=== PATIENT | male | born 1945 | race Caucasian/White ===

== ENCOUNTER 2017-05-01 13:14 | Emergency (ER) | payer OTHER, MEDICARE ==
[~2017-05-01] VITALS: Ht 172.7 cm; Wt 93.9 kg
[2017-05-01 13:18] VITALS: BP 163/79
--- NOTE | 2017-05-01 16:10 | ED MVC/FALL/TRAUMA COMPLAINT ---
History of Present Illness General Chief Complaint: Laceration Procedure Stated Complaint: LAC TO HEAD, S/P HITTING HEAD OB WOODEN BEAM Source: patient, family Exam Limitations: no limitations Vital Signs & Intake/Output Vital Signs & Intake/Output Vital Signs Date Time Temp Pulse Resp B/P B/P Pulse O2 O2 Flow FiO2 Mean Ox Delivery Rate 05/01 1626 Room Air 05/01 1318 97.1 80 15 163/79 97 Room Air Room Air Allergies Coded Allergies: hydrocodone (From VICODIN) (Severe, "VASOVAGAL" 05/01/17) Reconcile Medications Cetirizine HCl (All Day Allergy) 10 MG TABLET 1 TAB PO DAILY ALLERGIES ( Reported) Pravastatin Sodium 20 MG TABLET 1 TAB PO DAILY CHOLESTEROL (Reported) Tamsulosin HCl 0.4 MG CAP.ER.24H 1 CAP PO DAILY PROSTATE (Reported) Triage Note: PT TO ED FOR LAC TO L FRONT PART OF HEAD S/P WALKING INTO WOOD BEAM. PT DENIES HEADACHE, CHANGE IN VISION, NAUESA. NO THINNERS. LAST TETNUS FOUR YEARS AGO. Triage Nurses Notes Reviewed? yes HPI: 71 yo M PMH HLD, BPH presenting with scalp laceration. Patient was working this morning underneath his porch approximately 5 hours ago, while exiting the area underneath the porch and struck his left frontal/parietal head on a wooden beam, sustained laceration to left lateral frontal head. Denies associated headache, neck pain, neck stiffness, LOC, nausea, vomiting, altered mental status, confusion, or focal neurologic symptoms. Not taking any anticoagulants. Last tetanus 5 years ago. (RACHID PÉREZ MD) Past History Travel History Traveled to [place] past 21 day No Medical History Any Pertinent Medical History? 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 Yes (RACHID PÉREZ MD) Review of Systems Review of Systems Constitutional: Reports: no symptoms. Eyes: Reports: no symptoms. Ears, Nose, Throat, Mouth: Reports: no symptoms. Respiratory: Reports: no symptoms. Cardiovascular: Reports: no symptoms. Gastrointestinal/Abdominal: Reports: no symptoms. Genitourinary: Reports: no symptoms. Musculoskeletal: Reports: no symptoms. Skin: Reports: lesions. Neurological/Psychological: Reports: no symptoms. All Other Systems: Reviewed and Negative (RACHID PÉREZ MD) Physical Exam Physical Exam General Appearance: well developed/nourished, no apparent distress, alert, awake Head: Laceration Neck: normal inspection, full range of motion, no midline tenderness Respiratory: normal breath sounds, no respiratory distress, lungs clear Cardiovascular: regular rate/rhythm, normal peripheral pulses Gastrointestinal: normal bowel sounds, soft, non-tender Neurologic/Psych: no motor/sensory deficits, awake, alert, oriented x 3, cream dumper II- XII nml as tested Comments: HEENT: 3-4 cm curvilinear lacearation to left frontal-parietal head, PERRL, EOMI , no tenderness to palpation over facial bones, midface stable, no septal deviation or hematoma, no hemotympanum, lamas sign, raccoon eyes Cervical Spine: No midline bony tenderness to palpation, step-offs, or deformities Neurologic: Cranial nerves II through XII intact, no pronator drift, no motor or sensory deficits in bilateral upper and lower extremities Core Measures ACS in differential dx? No Severe Sepsis Present: No Septic Shock Present: No (RACHID PÉREZ MD) Progress Differential Diagnosis: laceration, soft tissue injury, skull fracture,ICH Plan of Care: Physician MDM: 71 yo M PMH HLD, not on AC presenting with head injury, left scalp laceration. VSS, trauma exam as above. DDx: Laceration, soft tissue injury , no symptoms concerning for concussion, low concern for intracranial hemorrhage , skull fracture, cervical spine injury. Tetanus updated. Laceration anesthetized with lidocaine 1% w/o epi, repaired with 4-0 ethilon with good approximation of wound margins, 8 sutures total. Given his been approximately 6 hours since the patient's injury, he is well-appearing with no concerning neurologic findings, low concern for intracranial hemorrhage, no need for DATA OFFICER imaging at this time. Patient given strict return precautions for any concerning neurologic symptoms, altered mental status, lethargy, nausea or vomiting. Discharged, plan and follow-up with PMD in 7-10 days for suture removal. (RACHID PÉREZ MD) Departure Departure Disposition: HOME OR SELF CARE Condition: Stable Clinical Impression Primary Impression: Closed head injury Qualifiers: Encounter type: initial encounter Qualified Code: S09.90XA - Unspecified injury of head, initial encounter Secondary Impressions: Scalp laceration Qualifiers: Encounter type: initial encounter Qualified Code: S01.01XA - Laceration without foreign body of scalp, initial encounter Referrals: GILMA GOODWIN MD (PCP/Family) Additional Instructions: Take tylenol or ibuprofen as needed for pain. Follow laceration care instructions as outlined in discharge paperwork. Follow up with your primary care physician in 7 days for suture removal. Return to the ED for any new, worsening, or concerning symptoms. Departure Forms: Customer Survey General Discharge Information (ELISA RAHMAN,RACHID) PA/BOOKING MANAGER Co-Sign Statement Statement: ED Attending supervision documentation- [] I saw and evaluated the patient. I have also reviewed all the pertinent lab results and diagnostic results. I agree with the findings and the plan of care as documented in the PA's/BOOKING MANAGER's documentation. [X] I have reviewed the ED Record and agree with the PA's/BOOKING MANAGER's documentation. [] Additions or exceptions (if any) to the PAs/BOOKING MANAGER's note and plan are summarized below: [] (SHER RAHMAN,KARLY)
[2017-05-01] MEDS ORDERED: TAMSULOSIN HCL0.4 M1 PO (16:43)
[2017-05-01] MEDS ORDERED: PRAVASTATIN SOD20 M2 PO (16:43)
[2017-05-01] MEDS ORDERED: ALL DAY ALLERGY10 MG PO (16:44)
== END 2017-05-01 17:28 ==
LOC: ERH 13:14
DX: S09.90XA Unspecified injury of head, initial encounter (principal); S01.01XA Laceration without foreign body of scalp, initial encounter; W22.09XA Striking against other stationary object, initial encounter; Y93.89 Activity, other specified; Y92.009 Unspecified place in unspecified non-institutional (private) residence as the place of occurrence of the external cause
CPT/HCPCS: 90471; 90714